=== PATIENT | female | born 1995 | race Hispanic/Latino ===

== ENCOUNTER 2017-10-30 19:58 | Emergency (ER) | payer MEDICAID, OTHER ==
[2017-10-30 20:20] LABS: APPEARANCE,URINE Clear (CLEAR); BILIRUBIN,URINE Negative (NEGATIVE); COLOR,URINE Yellow (YELLOW); GLUCOSE, URINE (UA) Negative (NEGATIVE); KETONES,URINE >=160 mg/dL (NEGATIVE); LEUKOCYTE ESTERASE ,URINE Negative (NEGATIVE); NITRATE,URINE Negative (NEGATIVE); OCCULT BLOOD,URINE Negative (NEGATIVE); PROTEIN,URINE Negative (NEGATIVE); UROBILINOGEN,URINE 0.2 mg/dL (0.2-1.0)
[2017-10-30 20:24] LABS: HCG,QUAL RESULT POSITIVE (NEGATIVE)
[2017-10-30 20:34] LABS: BASOPHILS % (AUTO) 0.6 % (0.0-5.0); EOSINOPHILS % (AUTO) 2.1 % (0.0-8.0); HEMATOCRIT 38.4 % (36-48); LYMPHOCYTES % (AUTO) 20.1 % (21.0-51.0); MEAN CORPUSCULAR HEMOGLOBIN 29.5 pg (27.0-33.0); MEAN CORPUSCULAR HGB CONC 34.1 g/dL (32.0-36.0); MEAN CORPUSCULAR VOLUME 86.4 fL (79-99); NEUTROPHILS % (AUTO) 69.2 % (40.0-77.0); PLATELET COUNT (AUTO) 268 K/uL (130-400); RED BLOOD CELL COUNT(AUTO) 4.45 MIL/uL (4.00-5.50); RED CELL DISTRIBUTION WIDTH 13.2 % (11.0-15.5); WHITE BLOOD COUNT (AUTO) 10.8 K/uL (4.8-10.8)
[2017-10-30 20:40] LABS: AMPHET/METH SCREEN,URINE NEGATIVE (NEGATIVE); BARBITURATE SCREEN, URINE NEGATIVE (NEGATIVE); BENZODIAZEPINES SCREEN,URINE NEGATIVE (NEGATIVE); CANNABINOID SCREEN,URINE NEGATIVE (NEGATIVE); COCAINE SCREEN,URINE NEGATIVE (NEGATIVE); OPIATE SCREEN,URINE NEGATIVE (NEGATIVE); PHENCYCLIDINE SCREEN,URINE NEGATIVE (NEGATIVE)
[2017-10-30 20:46] LABS: CREATININE 0.6 mg/dL (0.5-1.5); POTASSIUM 3.6 mmol/L (3.5-5.1)
[2017-10-30] MEDS ORDERED: PROMETHAZINE HCL 25 MG/ML 1ML AMPULE IM ONE (20:48)
[2017-10-30] MEDS ORDERED: SODIUM CHLORIDE 0.9% 1000ML 1,000 ML IV ONE (20:48)
[2017-10-30 20:53] LABS: ALBUMIN 4.3 g/dL (3.5-5.0); BILIRUBIN,TOTAL 0.5 mg/dL (0.2-1.0)
[2017-10-30] MEDS ORDERED: ONDANSETRON ODT 4 MG TAB ONE (22:50)
== END 2017-10-30 22:59 | disposition home or self-care (01) ==
LOC: EDH 19:58
DX: O20.0 Threatened abortion (principal); O99.611 Diseases of the digestive system complicating pregnancy, first trimester; K29.00 Acute gastritis without bleeding; Z3A.01 Less than 8 weeks gestation of pregnancy
CPT/HCPCS: 36415; 76801; 80053; 80305; 81003; 81025; 82150; 83690; 84702; 85025; 96361; 96374; 99285; J2550; J7030

== ENCOUNTER 2017-11-07 21:09 | Emergency (ER) | payer MEDICAID, OTHER ==
[2017-11-07] MEDS ORDERED: LIDOCAINE HCL 2% VISCOUS 15 ML UDCUP ONE (21:23)
[2017-11-07] MEDS ORDERED: MAGNESIUM HYDROXIDE 30 ML/UDCUP ONE (21:24)
[2017-11-07] MEDS ORDERED: HYDROCODONE/ACETAMINOPHEN 7.5/325 MG 15 ML UDCUP ONE (21:39)
== END 2017-11-07 21:45 | disposition home or self-care (01) ==
LOC: EDH 21:09
DX: O99.611 Diseases of the digestive system complicating pregnancy, first trimester (principal); K21.9 Gastro-esophageal reflux disease without esophagitis; K29.70 Gastritis, unspecified, without bleeding; Z3A.01 Less than 8 weeks gestation of pregnancy

== ENCOUNTER 2017-11-27 00:57 | Emergency (ER) | payer MEDICAID, OTHER ==
[2017-11-27] MEDS ORDERED: ONDANSETRON 4 MG TABLET ONE (01:28)
[2017-11-27] MEDS ORDERED: FAMOTIDINE 20MG TAB 20 MG TAB ONE (01:28)
== END 2017-11-27 01:50 | disposition home or self-care (01) ==
LOC: EDH 00:57
DX: O20.0 Threatened abortion (principal); O99.611 Diseases of the digestive system complicating pregnancy, first trimester; K21.9 Gastro-esophageal reflux disease without esophagitis; K29.70 Gastritis, unspecified, without bleeding; Z3A.10 10 weeks gestation of pregnancy
CPT/HCPCS: 99283; Q0162

== ENCOUNTER 2018-03-13 03:17 | Observation (INO) | payer MEDICAID, OTHER ==
[~2018-03-13] VITALS: Ht 152.4 cm; Wt 58.1 kg
[2018-03-13] MEDS ORDERED: LACTATED RINGERS 1000ML 1,000 ML IV SCH (03:30)
[2018-03-13 03:48] LABS: APPEARANCE,URINE Clear (CLEAR); BILIRUBIN,URINE Negative (NEGATIVE); COLOR,URINE Yellow (YELLOW); GLUCOSE, URINE (UA) Negative (NEGATIVE); KETONES,URINE Negative (NEGATIVE); LEUKOCYTE ESTERASE ,URINE Trace (NEGATIVE); NITRATE,URINE Negative (NEGATIVE); OCCULT BLOOD,URINE Negative (NEGATIVE); PROTEIN,URINE Negative (NEGATIVE); UROBILINOGEN,URINE 0.2 mg/dL (0.2-1.0)
[2018-03-13 03:51] LABS: BACTERIA,URINE None Seen /HPF (None Seen); MUCUS,URINE Few LPF (None Seen); RBC,URINE None Seen /HPF (0-1); SQUAMOUS EPITHELIAL CELL,UR Rare /HPF (0-2); WBC,URINE 0-1 /HPF (0-1)
[2018-03-13] MEDS ORDERED: LACTATED RINGERS 1000ML 1,000 ML IV ONE ×2 (04:08→05:08)
[2018-03-13] MEDS ORDERED: CITRIC ACID/SODIUM CITRATE 30 ML UDCUP PO SCH (04:45)
[2018-03-13] MEDS ORDERED: CITRIC ACID/SODIUM CITRATE 30 ML UDCUP ONE (05:08)
== END 2018-03-13 09:15 | disposition home or self-care (01) ==
LOC: EDH 03:17 → LDH 03:18
PROVIDERS: ADMIT Obstetrics & Gynecology; ATTEND Obstetrics & Gynecology
DX: O26.892 Other specified pregnancy related conditions, second trimester (principal); R11.0 Nausea; O60.02 Preterm labor without delivery, second trimester; Z3A.24 24 weeks gestation of pregnancy
CPT/HCPCS: 76705; 81001; 99285; G0378 ×6; J7120 ×2; 96360; 96361

== ENCOUNTER 2018-06-18 11:25 | Inpatient (IN) | payer OTHER ==
[~2018-06-18] VITALS: Ht 157.5 cm; Wt 65.8 kg
[2018-06-18] MEDS ORDERED: OXYTOCIN 10 USP UNITS/ML 20 UNIT in LACTATED RINGERS 1000ML 1,000 ML IV SCH ×2 (13:15→16:30)
[2018-06-18] MEDS: LACTATED RINGERS 1000ML 1,000 ML IV PRN ×2 (13:25→15:42)
[2018-06-18 13:52] LABS: HEMATOCRIT 38.6 % (36-48); MEAN CORPUSCULAR HEMOGLOBIN 27.7 pg (27.0-33.0); MEAN CORPUSCULAR HGB CONC 32.5 g/dL (32.0-36.0); MEAN CORPUSCULAR VOLUME 85.2 fL (79-99); PLATELET COUNT (AUTO) 153 K/uL (130-400); RED BLOOD CELL COUNT(AUTO) 4.53 MIL/uL (4.00-5.50); RED CELL DISTRIBUTION WIDTH 14.9 % (11.0-15.5); WHITE BLOOD COUNT (AUTO) 10.3 K/uL (4.8-10.8)
[2018-06-18] MEDS ORDERED: MEPERIDINE-PF 50 MG/ML SYG ONE (16:38)
[2018-06-18] MEDS ORDERED: OXYTOCIN-LR 20 UNITS/1000 ML 1,000 ML IV ONE ×2 (16:38→19:23)
[2018-06-18] MEDS ORDERED: PROMETHAZINE HCL 25 MG/ML 1ML AMPULE IM ONE ×2 (16:38→18:00)
[2018-06-18] MEDS ORDERED: MEPERIDINE-PF 50 MG/ML SYG IVP ONE (18:00)
[2018-06-18] MEDS ORDERED: LIDOCAINE HCL 1% 20 ML VIAL ONE (18:36)
[2018-06-18] MEDS ORDERED: LANOLIN 30GM OINTMENT TP PRN (19:30)
[2018-06-18] MEDS ORDERED: WITCH HAZEL 1 PAD TP PRN (19:30)
[2018-06-18] MEDS ORDERED: DIPH,PERTUSS(ACELL),TET VAC/PF 0.5 ML VIAL IM PRN (19:30)
[2018-06-18] MEDS ORDERED: ACETAMINOPHEN 325 MG TAB PO PRN (19:30)
[2018-06-18] MEDS ORDERED: MEASLES/MUMPS/RUBELLA VACCINE, LIVE 0.5 ML/VIAL SQ PRN (19:30)
[2018-06-18] MEDS ORDERED: OXYTOCIN-LR 20 UNITS/1000 ML 1,000 ML IV SCH (19:30)
[2018-06-18] MEDS: IBUPROFEN 800 MG TAB PO PRN (19:56)
[2018-06-18] MEDS: DOCUSATE SODIUM 100 MG CAP PO SCH (19:57)
[2018-06-18] MEDS: BENZOCAINE/LANOLIN/ALOE VERA 60 ML AEROSOL TP PRN (21:21)
[2018-06-18] MEDS ORDERED: HEPATITIS B VIRUS VACCINE-PF 10 MCG/0.5 ML VIAL IM ONE (21:24)
[2018-06-18] MEDS ORDERED: PREN1TAB80 PO (23:13)
[2018-06-18] MEDS ORDERED: GUAIFENESIN-DM 200/20 MG 10 ML ONE (23:45)
[2018-06-18] MEDS ORDERED: GUAIFENESIN-DM 200/20 MG 10 ML PO PRN (23:45)
[2018-06-19] VITALS: BP 116/68
[2018-06-19] MEDS: BENZOCAINE/LANOLIN/ALOE VERA 60 ML AEROSOL TP PRN (00:04)
[2018-06-19] MEDS ORDERED: OXYTOCIN 10 USP UNITS/ML 20 UNIT in LACTATED RINGERS 1000ML 1,000 ML IV SCH (03:00)
[2018-06-19 03:53] VITALS: BP 110/64
[2018-06-19] MEDS: IBUPROFEN 800 MG TAB PO PRN ×2 (03:57→13:12)
[2018-06-19 05:38] LABS: HEMATOCRIT 29.4 % (36-48); MEAN CORPUSCULAR HEMOGLOBIN 27.6 pg (27.0-33.0); MEAN CORPUSCULAR HGB CONC 32.4 g/dL (32.0-36.0); PLATELET COUNT (AUTO) 131 K/uL (130-400); RED BLOOD CELL COUNT(AUTO) 3.46 MIL/uL (4.00-5.50); RED CELL DISTRIBUTION WIDTH 14.7 % (11.0-15.5); WHITE BLOOD COUNT (AUTO) 14.8 K/uL (4.8-10.8)
[2018-06-19 07:27] VITALS: BP 103/50
[2018-06-19] MEDS: DOCUSATE SODIUM 100 MG CAP PO SCH (08:20)
[2018-06-19 11:20] VITALS: BP 111/61
[2018-06-19 12:16] LABS: HEPATITIS Bs ANTIGEN SCREEN P Negative (Negative)
[2018-06-19 16:00] VITALS: BP 104/64
== END 2018-06-19 19:00 | disposition home or self-care (01) | DRG 807 ==
LOC: OBSVTOIN 11:25 → LDH 11:25 → UNDOADMOB 11:33 → LDH 13:15 → WSH 19:05
PROVIDERS: ADMIT Obstetrics & Gynecology; ATTEND Obstetrics & Gynecology
PROC: 10E0XZZ Delivery of Products of Conception, External Approach (ICD-10-PCS; principal; 2018-06-18)
PROC: 0W8NXZZ Division of Female Perineum, External Approach (ICD-10-PCS; 2018-06-18)
PROC: 3E0234Z Introduction of Serum, Toxoid and Vaccine into Muscle, Percutaneous Approach (ICD-10-PCS; 2018-06-18)
PROC: 3E02340 Introduction of Influenza Vaccine into Muscle, Percutaneous Approach (ICD-10-PCS; 2018-06-18)
PROC: 3E0234Z Introduction of Serum, Toxoid and Vaccine into Muscle, Percutaneous Approach (ICD-10-PCS; 2018-06-18)
PROC: 3E0134Z Introduction of Serum, Toxoid and Vaccine into Subcutaneous Tissue, Percutaneous Approach (ICD-10-PCS; 2018-06-18)
DX: O80 Encounter for full-term uncomplicated delivery (principal); Z37.0 Single live birth; Z3A.38 38 weeks gestation of pregnancy; Z23 Encounter for immunization
CPT/HCPCS: 36415; 76815; 85027; 86592; 86850; 86900; 86901; 87340; 90715; 90743; A4351; A4606; G0378; J2175; J2550; J2590; J7120; Q2035

== ENCOUNTER 2021-04-06 10:30 | Inpatient (IN) | payer MEDICAID ==
[~2021-04-06] VITALS: Ht 162.6 cm; Wt 73.0 kg
[~2021-04-06 10:30] MED LIST: PREN1TAB80 PO
[2021-04-06] MEDS ORDERED: EPHEDRINE SULFATE 50 MG/ML AMPULE IVP PRN (11:00)
[2021-04-06] MEDS ORDERED: OXYTOCIN-LR 20 UNITS/1000 ML 1,000 ML IV SCH ×3 (11:00→17:00)
[2021-04-06] MEDS ORDERED: NALOXONE HCL 0.4 MG/1 ML ML IV PRN (11:00)
[2021-04-06] MEDS ORDERED: PROMETHAZINE HCL 25 MG/ML 1ML AMPULE IM PRN (11:00)
[2021-04-06] MEDS ORDERED: ROPIVACAINE 0.2% 100ML VIAL 100 ML EP SCH (11:00)
[2021-04-06] MEDS ORDERED: LACTATED RINGERS 1000ML 1,000 ML IV PRN (11:00)
[2021-04-06] MEDS ORDERED: LACTATED RINGERS 500 ML 500 ML IV PRN (11:00)
[2021-04-06] MEDS ORDERED: MEPERIDINE-PF 50 MG/ML SYG IVP PRN (11:00)
[2021-04-06 11:33] LABS: HEMATOCRIT 32.1 % (36-48); MEAN CORPUSCULAR HEMOGLOBIN 23.8 pg (27.0-33.0); MEAN CORPUSCULAR HGB CONC 30.8 g/dL (32.0-36.0); MEAN CORPUSCULAR VOLUME 77.2 fL (79-99); PLATELET COUNT (AUTO) 223 K/uL (130-400); RED BLOOD CELL COUNT(AUTO) 4.16 MIL/uL (4.00-5.50); RED CELL DISTRIBUTION WIDTH 15.1 % (11.0-15.5); WHITE BLOOD COUNT (AUTO) 9.2 K/uL (4.8-10.8)
[2021-04-06] MEDS ORDERED: LIDOCAINE 2%-EPI 1:200,000 20 ML VIAL IJ ONE (13:06)
[2021-04-06 13:11] LABS: APPEARANCE,URINE Clear (CLEAR); BILIRUBIN,URINE Negative (NEGATIVE); COLOR,URINE Yellow (YELLOW); GLUCOSE, URINE (UA) Negative (NEGATIVE); KETONES,URINE 40 mg/dL (NEGATIVE); LEUKOCYTE ESTERASE ,URINE Negative (NEGATIVE); NITRATE,URINE Negative (NEGATIVE); OCCULT BLOOD,URINE Negative (NEGATIVE); PROTEIN,URINE Negative (NEGATIVE); UROBILINOGEN,URINE 0.2 mg/dL (0.2-1.0)
[2021-04-06 13:19] LABS: BACTERIA,URINE None Seen /HPF (None Seen); MUCUS,URINE Moderate LPF (None Seen); RBC,URINE None Seen /HPF (0-1); TRANSITIONAL EPI CELLS,URINE Few /HPF (None Seen); WBC,URINE None Seen /HPF (0-1)
[2021-04-06] MEDS ORDERED: LIDOCAINE HCL MPF 1% 5ML VIAL ONE (16:21)
[2021-04-06] MEDS ORDERED: ACETAMINOPHEN WITH CODEINE 1 TAB TAB PO PRN (17:00)
[2021-04-06] MEDS ORDERED: WITCH HAZEL 1 PAD TP PRN (17:00)
[2021-04-06] MEDS ORDERED: ACETAMINOPHEN 325 MG TAB PO PRN (17:00)
[2021-04-06] MEDS ORDERED: MEASLES/MUMPS/RUBELLA VACCINE, LIVE 0.5 ML/VIAL SQ PRN (17:00)
[2021-04-06] MEDS ORDERED: BENZOCAINE/LANOLIN/ALOE VERA 60 ML AEROSOL TP PRN (17:00)
[2021-04-06] MEDS ORDERED: LANOLIN 30GM OINTMENT TP PRN (17:00)
[2021-04-06] MEDS ORDERED: DIPH,PERTUSS(ACELL),TET VAC/PF 0.5 ML VIAL IM PRN (17:00)
[2021-04-06] MEDS: IBUPROFEN 600 MG TABLET PO PRN ×2 (17:52→23:36)
[2021-04-06 19:56] VITALS: BP 116/75
[2021-04-06] MEDS ORDERED: PARACETAMOL (20:18)
[2021-04-06] MEDS: DOCUSATE SODIUM 100 MG CAP PO SCH (21:19)
[2021-04-06 23:25] VITALS: BP 115/72
[2021-04-07 03:43] VITALS: BP 96/63
[2021-04-07 06:12] LABS: HEPATITIS Bs ANTIGEN SCREEN P Negative (Negative)
[2021-04-07 07:08] LABS: HEMATOCRIT 28.3 % (36-48); MEAN CORPUSCULAR HEMOGLOBIN 23.4 pg (27.0-33.0); MEAN CORPUSCULAR HGB CONC 30.4 g/dL (32.0-36.0); MEAN CORPUSCULAR VOLUME 76.9 fL (79-99); RED BLOOD CELL COUNT(AUTO) 3.68 MIL/uL (4.00-5.50); RED CELL DISTRIBUTION WIDTH 15.1 % (11.0-15.5); WHITE BLOOD COUNT (AUTO) 14.6 K/uL (4.8-10.8)
[2021-04-07 07:15] VITALS: BP 111/60
[2021-04-07] MEDS: DOCUSATE SODIUM 100 MG CAP PO SCH (08:12)
[2021-04-07] MEDS: IBUPROFEN 600 MG TABLET PO PRN ×2 (08:16→15:50)
[2021-04-07 11:06] VITALS: BP 105/61
[2021-04-07] MEDS ORDERED: DOCU-116 PO (15:59)
[2021-04-07] MEDS ORDERED: IBUP-2071 PO (15:59)
== END 2021-04-07 17:45 | disposition home or self-care (01) | DRG 560 ==
LOC: LDH 10:30 → WSH 19:55
PROVIDERS: ADMIT Obstetrics & Gynecology; ATTEND Obstetrics & Gynecology
PROC: 10E0XZZ Delivery of Products of Conception, External Approach (ICD-10-PCS; principal; 2021-04-06)
PROC: 0KQM0ZZ Repair Perineum Muscle, Open Approach (ICD-10-PCS; 2021-04-06)
PROC: 10907ZC Drainage of Amniotic Fluid, Therapeutic from Products of Conception, Via Natural or Artificial Opening (ICD-10-PCS; 2021-04-06)
PROC: 3E0R3BZ Introduction of Anesthetic Agent into Spinal Canal, Percutaneous Approach (ICD-10-PCS; 2021-04-06)
PROC: 00HU33Z Insertion of Infusion Device into Spinal Canal, Percutaneous Approach (ICD-10-PCS; 2021-04-06)
PROC: 3E0234Z Introduction of Serum, Toxoid and Vaccine into Muscle, Percutaneous Approach (ICD-10-PCS; 2021-04-06)
DX: O70.1 Second degree perineal laceration during delivery (principal); Z23 Encounter for immunization; Z37.0 Single live birth; Z3A.38 38 weeks gestation of pregnancy
CPT/HCPCS: 36415; 81001; 85027; 86592; 86850; 86900; 86901; 87340; 90715; A4314; G0378; J2590; J2795; J3490; J7120

== ENCOUNTER 2021-06-14 00:40 | Emergency (ER) | payer MEDICAID ==
[~2021-06-14] VITALS: Ht 157.5 cm; Wt 62.6 kg
[~2021-06-14 00:40] MED LIST changes: +DOCU-116 PO; +IBUP-2071 PO
[2021-06-14 01:21] LABS: BASOPHILS % (AUTO) 0.2 % (0.0-5.0); EOSINOPHILS % (AUTO) 3.2 % (0.0-8.0); HEMATOCRIT 36.5 % (36-48); LYMPHOCYTES % (AUTO) 32.1 % (21.0-51.0); MEAN CORPUSCULAR HEMOGLOBIN 24.4 pg (27.0-33.0); MEAN CORPUSCULAR VOLUME 78.8 fL (79-99); MONOCYTES % (AUTO) 6.1 % (3.0-13.0); NEUTROPHILS % (AUTO) 57.9 % (40.0-77.0); PLATELET COUNT (AUTO) 264 K/uL (130-400); RED BLOOD CELL COUNT(AUTO) 4.63 MIL/uL (4.00-5.50); RED CELL DISTRIBUTION WIDTH 18.8 % (11.0-15.5); WHITE BLOOD COUNT (AUTO) 10.5 K/uL (4.8-10.8)
[2021-06-14] MEDS ORDERED: SUCRALFATE 1 GM TABLET PO SCH (01:30)
[2021-06-14] MEDS ORDERED: FAMOTIDINE 20MG VIAL IV ONE (01:30)
[2021-06-14] MEDS ORDERED: HYOSCYAMINE SULFATE 0.125 MG TAB.SUBL SL ONE (01:30)
[2021-06-14] MEDS ORDERED: ONDANSETRON 4MG INJ IVP ONE (01:30)
[2021-06-14 01:32] LABS: CREATININE 0.6 mg/dL (0.5-1.5); POTASSIUM 3.9 mmol/L (3.5-5.1)
[2021-06-14 01:37] LABS: ALBUMIN 3.5 g/dL (3.5-5.0); BILIRUBIN,TOTAL 0.1 mg/dL (0.2-1.0); TOTAL PROTEIN, SERUM 7.4 g/dL (6.0-8.3)
[2021-06-14 02:49] LABS: APPEARANCE,URINE Clear (CLEAR); BILIRUBIN,URINE Negative (NEGATIVE); COLOR,URINE Yellow (YELLOW); GLUCOSE, URINE (UA) Negative (NEGATIVE); KETONES,URINE Negative (NEGATIVE); LEUKOCYTE ESTERASE ,URINE Negative (NEGATIVE); NITRATE,URINE Negative (NEGATIVE); OCCULT BLOOD,URINE Negative (NEGATIVE); PROTEIN,URINE Negative (NEGATIVE); UROBILINOGEN,URINE 0.2 mg/dL (0.2-1.0)
[2021-06-14 02:53] LABS: HCG,QUAL RESULT NEGATIVE (NEGATIVE)
[2021-06-14] MEDS ORDERED: MORPHINE 2 MG SYG ONE (03:04)
[2021-06-14] MEDS ORDERED: MORPHINE 2 MG SYG IVP ONE (03:30)
[2021-06-14 04:56] VITALS: BP 116/72
[2021-06-14] MEDS ORDERED: DICY20TA2 PO (04:58)
== END 2021-06-14 05:12 | disposition home or self-care (01) ==
LOC: EDH 00:40
DX: K80.50 Calculus of bile duct without cholangitis or cholecystitis without obstruction (principal); Z79.1 Long term (current) use of non-steroidal anti-inflammatories (NSAID); Z79.899 Other long term (current) drug therapy
CPT/HCPCS: 36415; 76705; 80053; 81003; 81025; 82150; 83690; 85025; 96374; 96375; 99284; J2405; S0028; J3490

== ENCOUNTER 2021-08-12 06:45 | Day surgery (SDC) | payer MEDICAID ==
[2021-08-09 10:38] LABS: BASOPHILS % (AUTO) 0.4 % (0.0-5.0); HEMATOCRIT 39.7 % (36-48); LYMPHOCYTES % (AUTO) 28.2 % (21.0-51.0); MEAN CORPUSCULAR HEMOGLOBIN 26.7 pg (27.0-33.0); MEAN CORPUSCULAR HGB CONC 31.5 g/dL (32.0-36.0); MEAN CORPUSCULAR VOLUME 84.8 fL (79-99); NEUTROPHILS % (AUTO) 62.2 % (40.0-77.0); PLATELET COUNT (AUTO) 305 K/uL (130-400); RED BLOOD CELL COUNT(AUTO) 4.68 MIL/uL (4.00-5.50); RED CELL DISTRIBUTION WIDTH 13.7 % (11.0-15.5); WHITE BLOOD COUNT (AUTO) 8.3 K/uL (4.8-10.8)
[2021-08-09 10:49] LABS: CREATININE 0.6 mg/dL (0.5-1.5)
[2021-08-09 10:51] LABS: INR 0.95 (0.85-1.15); PROTHROMBIN TIME 10.4 SEC (9.6-11.6)
[2021-08-09 10:52] LABS: PARTIAL THROMBOPLASTIN TIME 27.1 SEC (26.3-35.5)
[2021-08-11 10:28] VITALS: BP 129/65
[~2021-08-12] VITALS: Ht 157.5 cm; Wt 61.9 kg
[2021-08-12] VITALS (16 sets, daily range): BP systolic 110–128; BP diastolic 62–81
[~2021-08-12 06:45] MED LIST changes: +0.9% NACL 500ML IV.SOLN 500 ML IV SCH; -DOCU-116 PO; -IBUP-2071 PO; +LARIN PO; -PREN1TAB80 PO
[2021-08-12] MEDS ORDERED: LACTATED RINGERS 1000ML 1,000 ML IV ONE (07:25)
[2021-08-12] MEDS: CEFAZOLIN SODIUM 1 GM VIAL IVP SCH ×2 (07:30→08:46)
[2021-08-12] MEDS ORDERED: BUPIVACAINE/PF 0.5% 30ML VIAL ONE (07:46)
[2021-08-12] MEDS ORDERED: INDOCYANINE GREEN 25 MG VIAL IJ ONE (07:58)
[2021-08-12] MEDS ORDERED: ROCURONIUM 10MG/1ML SYR 10 MG/ML ML ONE (08:02)
[2021-08-12] MEDS ORDERED: NEOSTIGMINE 5MG/5ML SYR IV ONE (08:02)
[2021-08-12] MEDS ORDERED: SUCCINYLCHOLINE 200MG/10ML SYR ONE (08:02)
[2021-08-12] MEDS ORDERED: LIDOCAINE PF 100MG/5ML (2%) SYRINGE 5ML ONE ×2 (08:02→08:44)
[2021-08-12] MEDS ORDERED: GLYCOPYRROLATE 1 MG/5 ML SYRINGE ONE (08:02)
[2021-08-12] MEDS ORDERED: MIDAZOLAM HCL 1 MG/ML 2ML VIAL ONE (08:02)
[2021-08-12] MEDS ORDERED: DEXAMETHASONE SOD PHOSPHATE 4 MG/ML 1ML VIAL ONE (08:02)
[2021-08-12] MEDS ORDERED: ONDANSETRON 4MG INJ ONE ×2 (08:02→10:04)
[2021-08-12] MEDS ORDERED: PROPOFOL 10 MG/ML 20ML VIAL IV ONE (08:02)
[2021-08-12] MEDS ORDERED: FENTANYL CITRATE PF 50 MCG/1 ML 2ML VIAL ONE ×3 (08:03→09:30)
[2021-08-12] MEDS ORDERED: PHENYLEPHRINE HCL 10 MG/ML 1ML VIAL IV ONE (08:43)
[2021-08-12] MEDS ORDERED: KETOROLAC 30MG VIAL (30MG/ML) ONE (10:04)
[2021-08-12] MEDS ORDERED: MEPERIDINE-PF 25 MG/ML SYG ONE ×2 (10:04→10:33)
== END 2021-08-12 11:40 | disposition home or self-care (01) ==
LOC: DAH 06:45
PROVIDERS: ATTEND Surgery
DX: K80.64 Calculus of gallbladder and bile duct with chronic cholecystitis without obstruction (principal); Z20.822 Contact with and (suspected) exposure to COVID-19; K82.8 Other specified diseases of gallbladder; K21.9 Gastro-esophageal reflux disease without esophagitis; E66.9 Obesity, unspecified; Z79.899 Other long term (current) drug therapy; Z79.01 Long term (current) use of anticoagulants; Z82.49 Family history of ischemic heart disease and other diseases of the circulatory system; Z83.3 Family history of diabetes mellitus; Z68.24 Body mass index [BMI] 24.0-24.9, adult
CPT/HCPCS: 47562; S2900; 36415; 80048; 84703; 85025; 85610; 85730; 87635; C9803; J0330; J0690; J1100; J1885; J2001; J2175; J2250; J2370; J2405; J2704; J2710; J3010; J3490; J7030; J7120

== ENCOUNTER 2023-01-26 06:24 | Day surgery (SDC) | payer MEDICAID ==
[2023-01-25 16:06] VITALS: BP 140/86; PULSE 96; RESP 16
[2023-01-25 16:17] LABS: BASOPHILS # (AUTO) 0.06 K/uL (0.00-0.20); BASOPHILS % (AUTO) 0.7 % (0.0-5.0); EOSINOPHILS % (AUTO) 3.4 % (0.0-8.0); HEMATOCRIT 39.9 % (36-48); IMMATURE GRANULOCYTE ABSOLUTE 0.03 K/uL (0-1); LYMPHOCYTES # (AUTO) 3.1 K/uL (1.0-4.8); LYMPHOCYTES % (AUTO) 35.6 % (21.0-51.0); MEAN CORPUSCULAR HEMOGLOBIN 28.9 pg (27.0-33.0); MEAN CORPUSCULAR HGB CONC 33.6 g/dL (32.0-36.0); MEAN CORPUSCULAR VOLUME 86.2 fL (79-99); MONOCYTES # (AUTO) 0.5 K/uL (0.1-1.0); MONOCYTES % (AUTO) 6.2 % (3.0-13.0); NEUTROPHILS # (AUTO) 4.7 K/uL (1.8-7.7); NEUTROPHILS % (AUTO) 53.8 % (40.0-77.0); PLATELET COUNT (AUTO) 317 K/uL (130-400); RED BLOOD CELL COUNT(AUTO) 4.63 MIL/uL (4.00-5.50); RED CELL DISTRIBUTION WIDTH 13.1 % (11.0-15.5); WHITE BLOOD COUNT (AUTO) 8.8 K/uL (4.8-10.8)
[~2023-01-26] VITALS: Ht 152.4 cm; Wt 70.3 kg
[2023-01-26] VITALS (16 sets, daily range): BP systolic 105–124; BP diastolic 66–81; PULSE 82–103; RESP 15–20
[~2023-01-26 06:24] MED LIST changes: -0.9% NACL 500ML IV.SOLN 500 ML IV SCH; -LARIN PO; +[UNRECOGNIZED DRUG - CODE] PO
[2023-01-26] MEDS ORDERED: CEFAZOLIN SODIUM 2 GM VIAL ONE (06:29)
[2023-01-26] MEDS ORDERED: LACTATED RINGERS 1000ML 1,000 ML IV ONE (06:29)
[2023-01-26] MEDS ORDERED: STRONG IODINE SOLN 14ML BOTTLE ONE (06:44)
[2023-01-26] MEDS ORDERED: MIDAZOLAM HCL 1 MG/ML 2ML VIAL ONE (07:08)
[2023-01-26] MEDS ORDERED: FENTANYL CITRATE PF 50 MCG/1 ML 2ML VIAL ONE ×2 (07:08→07:47)
[2023-01-26] MEDS ORDERED: PROPOFOL 10 MG/ML 20ML VIAL IV ONE (07:19)
[2023-01-26] MEDS ORDERED: ONDANSETRON 4MG INJ ONE (07:19)
[2023-01-26] MEDS ORDERED: ROCURONIUM 10MG/1ML SYR 10 MG/ML ML ONE (07:19)
[2023-01-26] MEDS ORDERED: MEPERIDINE-PF 25 MG/ML SYG ONE ×3 (07:43→08:52)
[2023-01-26] MEDS ORDERED: DEXAMETHASONE SOD PHOSPHATE 10MG/ML 1ML VIAL ONE (07:47)
[2023-01-26] MEDS ORDERED: FERRIC SUBSULFATE ML TP ONE (08:00)
[2023-01-26] MEDS ORDERED: ESMOLOL HCL 10 MG/ML 10 ML VIAL ONE (08:21)
[2023-01-26] MEDS ORDERED: NEOSTIGMINE 5MG/5ML SYR IV ONE (08:21)
[2023-01-26] MEDS ORDERED: GLYCOPYRROLATE 1 MG/5 ML SYRINGE ONE (08:22)
[2023-01-26] MEDS ORDERED: KETOROLAC 30MG VIAL (30MG/ML) ONE (08:52)
== END 2023-01-26 10:00 | disposition home or self-care (01) ==
LOC: DAH 06:24
PROVIDERS: ATTEND Obstetrics & Gynecology
DX: N87.1 Moderate cervical dysplasia (principal); Z20.822 Contact with and (suspected) exposure to COVID-19; K21.9 Gastro-esophageal reflux disease without esophagitis
CPT/HCPCS: 84703; 85025; 86850; 86900; 86901; 36415; 57520; 88305; 88307; A6260; A4351; C1769; J7120; J3010 ×2; J3490 ×3; J1100; J2710; J2250; J2405; J1885; J2175 ×3; J0690; A4649; A4215; A4223; A4222; A4221; A4663; A4600; A4510; J2704

== ENCOUNTER 2024-02-14 17:28 | Emergency (ER) | payer BC, MEDICAID ==
[~2024-02-14] VITALS: Ht 152.4 cm; Wt 68.0 kg
[2024-02-14 18:19] LABS: BASOPHILS # (AUTO) 0.04 K/uL (0.00-0.20); BASOPHILS % (AUTO) 0.3 % (0.0-5.0); EOSINOPHILS # (AUTO) 0.21 K/uL (0.00-0.70); EOSINOPHILS % (AUTO) 1.6 % (0.0-8.0); HEMATOCRIT 40.7 % (36-48); IMMATURE GRANULOCYTE ABSOLUTE 0.04 K/uL (0-1); LYMPHOCYTES # (AUTO) 1.4 K/uL (1.0-4.8); LYMPHOCYTES % (AUTO) 10.8 % (21.0-51.0); MEAN CORPUSCULAR HEMOGLOBIN 28.8 pg (27.0-33.0); MEAN CORPUSCULAR HGB CONC 32.9 g/dL (32.0-36.0); MEAN CORPUSCULAR VOLUME 87.5 fL (79-99); MONOCYTES # (AUTO) 0.6 K/uL (0.1-1.0); MONOCYTES % (AUTO) 4.8 % (3.0-13.0); NEUTROPHILS # (AUTO) 10.7 K/uL (1.8-7.7); NEUTROPHILS % (AUTO) 82.2 % (40.0-77.0); PLATELET COUNT (AUTO) 251 K/uL (130-400); RED BLOOD CELL COUNT(AUTO) 4.65 MIL/uL (4.00-5.50); RED CELL DISTRIBUTION WIDTH 12.9 % (11.0-15.5)
[2024-02-14 18:29] LABS: ADD UA MICROSCOPIC YES; APPEARANCE,URINE CLEAR (CLEAR); BILIRUBIN,URINE NEGATIVE (NEGATIVE); COLOR,URINE YELLOW (YELLOW); GLUCOSE, URINE (UA) NEGATIVE (NEGATIVE); KETONES,URINE 20 mg/dL (NEGATIVE); LEUKOCYTE ESTERASE ,URINE NEGATIVE Leu/uL (NEGATIVE); NITRATE,URINE NEGATIVE (NEGATIVE); PH,URINE 5.5 (5.0-8.0); PROTEIN,URINE 10 mg/dL (NEGATIVE); UROBILINOGEN,URINE 0.2 mg/dL (0.2-1.0)
[2024-02-14] MEDS: ONDANSETRON 4MG INJ IVP ONE (18:29)
[2024-02-14] MEDS: FAMOTIDINE 20MG VIAL IV ONE (18:29)
[2024-02-14] MEDS: MAG/ALUM/SIMETH 30 ML UDCUP PO ONE (18:29)
[2024-02-14] MEDS: LIDOCAINE HCL 2% VISCOUS 15 ML UDCUP PO ONE (18:29)
[2024-02-14 18:30] LABS: CREATININE 0.7 mg/dL (0.5-1.0); POTASSIUM 3.4 mmol/L (3.5-5.1)
[2024-02-14 18:31] LABS: BACTERIA,URINE RARE /HPF (None Seen); MUCUS,URINE RARE LPF (None Seen); SQUAMOUS EPITHELIAL CELL,UR RARE /HPF (0-2)
[2024-02-14 18:34] LABS: ALBUMIN 3.9 g/dL (3.5-5.0); BILIRUBIN,DIRECT 0.1 mg/dL (0.0-0.3); BILIRUBIN,TOTAL 0.4 mg/dL (0.2-1.0); TOTAL PROTEIN, SERUM 7.7 g/dL (6.0-8.3)
[2024-02-14 19:44] VITALS: BP 122/68; PULSE 70; RESP 20; TEMP 98.5; O2SAT 100
[2024-02-14] MEDS ORDERED: FAMO-136 PO (20:21)
[2024-02-14] MEDS ORDERED: ONDA-243 PO (20:21)
== END 2024-02-14 20:27 | disposition home or self-care (01) ==
LOC: EDH 17:28
DX: K29.70 Gastritis, unspecified, without bleeding (principal); Z79.899 Other long term (current) drug therapy; Z90.49 Acquired absence of other specified parts of digestive tract
CPT/HCPCS: 99284; 96374; 96375; 80076; 80048; 84703; 83690; 85025; 81001; 36415; J3490; J2405

== ENCOUNTER 2025-02-08 17:44 | Emergency (ER) | payer BC ==
[~2025-02-08] VITALS: Ht 154.9 cm; Wt 64.9 kg
[~2025-02-08 17:44] MED LIST changes: +FAMO-136 PO; +ONDA-243 PO
[2025-02-08 18:16] LABS: IMMATURE GRANULOCYTE ABSOLUTE 0.03 K/uL (0-1); NUCLEATED RED BLOOD CELLS 0.0 % (0.0-0.19); PLATELET COUNT (AUTO) 270 K/uL (130-400); RED BLOOD CELL COUNT(AUTO) 4.27 MIL/uL (4.00-5.50); RED CELL DISTRIBUTION WIDTH 13.0 % (11.0-15.5); WHITE BLOOD COUNT (AUTO) 9.7 K/uL (4.8-10.8)
[2025-02-08 18:23] LABS: CREATININE 0.8 mg/dL (0.5-1.0); GLOMERULAR FILTR. RATE CALC 101.0 mL/min (>90); GLUCOSE,RANDOM 170.0 mg/dL (70-105); SODIUM SERUM 138.0 mmol/L (136-145); UREA NITROGEN, BLOOD 8.0 mg/dL (7-18)
[2025-02-08] MEDS: 0.9%NACL 1000ML 1,000 ML IV STA (18:26)
[2025-02-08 18:43] LABS: APPEARANCE,URINE CLEAR (CLEAR); GLUCOSE, URINE (UA) 30 mg/dL (NEGATIVE); LEUKOCYTE ESTERASE ,URINE NEGATIVE Leu/uL (NEGATIVE); NITRATE,URINE NEGATIVE (NEGATIVE); OCCULT BLOOD,URINE NEGATIVE (NEGATIVE)
--- NOTE | 2025-02-08 18:45 | ERN ---
ED Note History of Present Illness Stated Complaint: COVID Chief Complaint: Palpitations Time Seen by MD: 17:48 Time Seen by Midlevel: 17:50 Dictation: 29-year-old female with no past medical history coming in with feelings of palpitations. Patient states the started at about 3:00 p.m.. Was recently sick with cough and congestion using Ambroxol, and Salbutamol. Allergies: Coded Allergies: No Known Drug Allergies (Unverified Allergy, Unknown, 03/13/18) Home Meds Active Scripts Potassium Chloride (K-Dur/Klor-Con) 20 Meq Ertab, 1 TAB PO DAILY for 5 Days, #5 TAB 0 Refills Prov:DUKE RICHARDS NP 02/08/25 Famotidine (Pepcid) 20 Mg Tablet, 20 MG PO BID for 7 Days, #14 TAB Prov:CHANTELLE CORONEL 02/14/24 Ondansetron (Ondansetron Odt) 4 Mg Tab.rapdis, 4 MG PO BID for 7 Days, #14 TAB Prov:CHANTELLE CORONEL 02/14/24 Reported Medications Norethindrone-E.estradiol-Iron (Alyssa 24 Fe 1 mg-20 Mcg Tablet) 1 Each Tablet, 1 TAB PO HS 01/25/23 Past Medical History Past Medical History: No Pertinent History Additional Past Medical Hx: denies pmhx Surgical History: Cholecystectomy Review of System Dictation Constitutional: Negative for fever,chills, and weight loss Eyes: Negative for injury, pain,redness, and discharge ENT: Negative for injury,pain or swelling Cardiovascular: Negative for chest pain, palpitations, and edema Respiratory: Negative for shortness of breath, cough, and wheezing, Abdomen/GI: Negative for abdominal pain, nausea, vomiting, diarrhea, and constipation Back: Negative for injury and pain : Negative for injury, bleeding and discharge MS/Extremity: Negative for injury and deformity Skin: Negative for rash, and discoloration Neuro: Negative for headache, weakness, numbness, tingling, and seizure Psych: Negative for suicide ideation, homicidal ideation, and hallucinations Review of Systems: was completed Initial Vital Sign VS Vital Signs Date Time Temp Pulse Resp B/P (MAP) Pulse Ox O2 Delivery O2 Flow Rate FiO2 02/08/25 17:45 98.2 102 20 127/85 100 Room Air 0 02/08/25 17:48 21 Physical Exam Dictation General: awake, alert, NAD Head/Face: Normocephalic, atraumatic Eyes: PERRL, EOMI, vision at baseline ENT: oral cavity clear, TMs clear, no signs of infection Neck: Trachea midline, supple, no nuchal rigidity Cardiovascular: RRR, normal S1/S2, No MRGs, no JVD Respiratory: CTAB, no respiratory distress, No rales or wheezes Abdomen: Soft, non-tender, non-distended, normal bowel sounds, no guarding or rebound. Skin: Warm, dry, normal turgor, no rash MS/Extremity: Pulses equal, no cyanosis, neurovascular intact, FROM Neuro: COAx4, GCS 15, strength 5/5, CN 2-12 intact, normal cerebellar exam, normal gait, Psych: Normal behavior, mood, and affect normal Results (Laboratory/Radiology) Laboratory/Radiology Laboratory Tests Test 02/08/25 18:10 02/08/25 18:29 White Blood Count 9.7 K/uL (4.8-10.8) Red Blood Count 4.27 MIL/uL (4.00-5.50) Hemoglobin 12.4 g/dL (12.0-16.0) Hematocrit 37.2 % (36-48) Mean Corpuscular Volume 87.1 fL (79-99) Mean Corpuscular Hemoglobin 29.0 pg (27.0-33.0) Mean Corpuscular Hemoglobin Concent 33.3 g/dL (32.0-36.0) Red Cell Distribution Width 13.0 % (11.0-15.5) Platelet Count 270 K/uL (130-400) Mean Platelet Volume 11.6 fL (7.5-10.5) H Immature Granulocyte % (Auto) 0.3 % (0-1) Neutrophils (%) (Auto) 60.2 % (40.0-77.0) Lymphocytes (%) (Auto) 30.0 % (21.0-51.0) Monocytes (%) (Auto) 7.8 % (3.0-13.0) Eosinophils (%) (Auto) 1.4 % (0.0-8.0) Basophils (%) (Auto) 0.3 % (0.0-5.0) Neutrophils # (Auto) 5.8 K/uL (1.8-7.7) Lymphocytes # (Auto) 2.9 K/uL (1.0-4.8) Monocytes # (Auto) 0.8 K/uL (0.1-1.0) Eosinophils # (Auto) 0.14 K/uL (0.00-0.70) Basophils # (Auto) 0.03 K/uL (0.00-0.20) Absolute Immature Granulocyte (auto 0.03 K/uL (0-1) Nucleated Red Blood Cells 0.0 % (0.0-0.19) Sodium Level 138 mmol/L (136-145) Potassium Level 2.5 mmol/L (3.5-5.1) *L Chloride Level 102 mmol/L (101-111) Carbon Dioxide Level 26 mmol/L (21-32) Blood Urea Nitrogen 8 mg/dL (7-18) Creatinine 0.8 mg/dL (0.5-1.0) Glomerular Filtration Rate Calc 101 mL/min (>90) Random Glucose 170 mg/dL (70-105) H Total Calcium 8.5 mg/dL (8.5-10.1) Magnesium Level 1.60 mg/dL (1.80-2.40) L Troponin I High Sensitivity < 4 ng/L (4-50) L Urine Color COLORLESS (YELLOW) Urine Appearance CLEAR (CLEAR) Urine pH 6.0 (5.0-8.0) Urine Specific [place] 1.007 (1.001-1.031) Urine Protein NEGATIVE mg/dL (NEGATIVE) Urine Glucose (UA) 30 mg/dL (NEGATIVE) H Urine Ketones NEGATIVE mg/dL (NEGATIVE) Urine Occult Blood NEGATIVE (NEGATIVE) Urine Nitrate NEGATIVE (NEGATIVE) Urine Bilirubin NEGATIVE mg/dL (NEGATIVE) Urine Urobilinogen 0.2 mg/dL (0.2-1.0) Urine Leukocyte Esterase NEGATIVE [place]/uL Urine RBC 2-5 /HPF (0-1) H Urine WBC 0-1 /HPF (0-1) Urine Squamous Epithelial Cells RARE /HPF (0-2) Urine Bacteria RARE /HPF (None Seen) Urine HCG, Qualitative NEGATIVE (NEGATIVE) Labs Reviewed?: Yes X-RAY Comment: EKGs done at 6:11 p.m.. Sinus rhythm at a rate of 91. ED Course ED Course Orders Procedure Category Date Status Time Cbc With Differential LAB 02/08/25 Complete 18:05 Basic Metabolic Panel LAB 02/08/25 Complete 18:05 Urinalysis Profile LAB 02/08/25 Complete 18:05 ,Urine Test LAB 02/08/25 Complete 18:05 12 Lead Ekg Tracing- EKG 02/08/25 Complete Technical 18:05 Troponin I High LAB 02/08/25 Complete Sensitivity 18:05 Chest 1vw RAD 02/08/25 Resulted 18:05 0.9%Nacl 1000ml (Ns PHA 02/08/25 Complete 1000ml) 18:05 Magnesium LAB 02/08/25 Complete 18:40 Potassium Bicarb/Cit PHA 02/08/25 Complete Ac 25meq (K-Lyte Ta 18:40 Magnesium Oxide PHA 02/08/25 Complete (Mag-Ox) 19:15 Potassium Chloride PHA 02/08/25 In Process 10meq/100ml ([place] 19:19 Current Medications Medications (Trade) Dose Ordered Sig/Shailesh Route PRN Reason Start Time Stop Time Status Last Admin Dose Admin Magnesium Oxide (Mag-Ox) 400 mg ONCE STAT PO 02/08/25 19:15 02/08/25 19:22 DC 02/08/25 19:37 Potassium Bicarbonate (K-Lyte Tablet Eff 25 Meq Tablet.eff) 50 meq ONCE STAT PO 02/08/25 18:40 02/08/25 18:53 DC 02/08/25 18:55 Potassium Chloride 100 ml @ 100 mls/hr ONCE STAT IV 02/08/25 19:19 02/08/25 20:18 02/08/25 19:38 Sodium Chloride 1,000 ml @ 1,000 mls/hr Q1H STAT IV 02/08/25 18:05 02/08/25 19:04 DC 02/08/25 18:26 Vital Signs Date Time Temp Pulse Resp B/P (MAP) Pulse Ox O2 Delivery O2 Flow Rate FiO2 02/08/25 18:50 99.1 94 18 113/77 100 Room Air* 0 21 02/08/25 17:48 98.2 102 20 127/85 100 Room Air* 0 21 02/08/25 17:45 98.2 102 20 127/85 100 Room Air 0 Medical Decision Making MDM MDM: 29-year-old female with no past medical history coming in with feelings of palpitations. Patient states the started at about 3:00 p.m.. Was recently sick with cough and congestion using Ambroxol, and Salbutamol. States he had two episodes of large amount of diarrhea throughout the week. Denies any diarrhea at this time. Blood work is unremarkable. Chemistry shows low potassium of 2.5. Magnesium is also low at 1.7. Replacement for potassium p.o. and IV administered in the ER and patient will be discharged with p.o. potassium for one week. Discussed with patient the salbutamol and possibly the bouts of diarrhea could be causing her hypokalemia. Educated to return to the hospital if any worsening symptoms and follow up with PCP. Differential diagnosis: Dehydration, electrolyte abnormality, arrhythmias Rationale: Tests considered and ordered secondary to shared decision making include: Previous outside records reviewed: Old ER visits. Risk of complication and/or morbidity or mortality of patient management: None Medications-Per medication reconciliation Need for hospitalization: Patient does not meet criteria for hospitalization. Need for emergency major/minor surgery: No There are no social concerns with this patient. Prescription drug management Prescriptions will include symptomatic care Patient's prior external medical records from other ER visits were reviewed by me as indicated. Prior testing and results from previous visits were reviewed. Prior tests were taken into account with medical decision making and resource utilization, independent historian/historians were used to obtain complete medical history. I independently interpreted the test that were performed, results were reviewed by me and considered findings on radiology if ordered. Medical management and examination interpretation discussions were had by me with other qualified healthcare professionals as indicated for the patient's care. DX & DISP Disposition: Discharge Departure Impression: Primary Impression: Hypokalemia Condition: Stable Scripts Potassium Chloride (K-Dur/Klor-Con) 20 Meq Ertab 1 TAB PO DAILY for 5 Days, #5 TAB 0 Refills Prov: DUKE RICHARDS NP 02/08/25 Additional Instructions: Please take medications as prescribed. Follow up with your PCP in 1-2 days. During to the hospital as needed. Referrals: CHANTELLE ERICKSON MD (PCP) Time of Disposition: 19:41 I have reviewed the case, and I agree with, Diagnosis and Plan DUKE RICHARDS NP Feb 08, 2025 18:45
[2025-02-08 18:47] LABS: ADD UA MICROSCOPIC YES; HCG,QUALITATIVE URINE NEGATIVE (NEGATIVE)
--- NOTE | 2025-02-08 18:48 | HMCIMG ---
EXAM: CR Chest, 1 View. CLINICAL HISTORY: cp COMPARISON: None provided. FINDINGS: LUNGS: There is no mass, infiltrate, or acute pulmonary abnormality. PLEURAL SPACES: No pleural effusion or pneumothorax. MEDIASTINUM: The cardiomediastinal silhouette is within normal limits. BONES: No aggressive appearing osseous lesion seen. IMPRESSION: No acute cardiopulmonary pathology is evident. /[place]
[2025-02-08 18:51] LABS: SQUAMOUS EPITHELIAL CELL,UR RARE /HPF (0-2)
--- NOTE | 2025-02-08 19:01 | EKG ---
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
[2025-02-08] MEDS ORDERED: POTA-192 PO (19:33)
[2025-02-08] MEDS: MAGNESIUM OXIDE 400 MG TABLET PO STA (19:37)
[2025-02-08 21:14] VITALS: BP 108/76; PULSE 98; RESP 18; TEMP 98.6; O2SAT 100
== END 2025-02-08 21:18 | disposition home or self-care (01) ==
LOC: EDH 17:44
DX: E87.6 Hypokalemia (principal); Z79.899 Other long term (current) drug therapy; Z90.49 Acquired absence of other specified parts of digestive tract
CPT/HCPCS: 99284; 96374; 71045; 96361; 83735; 84484; 80048; 85025; 81001; 81025; 36415; 93005; J7030; J3480